=== PATIENT | male | born 2005 | race American Indian/Alaskan Native ===

== ENCOUNTER 2025-08-14 21:21 | Emergency (ER) | payer MEDICAID, OTHER | END 2025-08-14 22:36 | disposition home or self-care (01) | LOC: JP.ED 21:21 | DX: S91.302A Unspecified open wound, left foot, initial encounter (principal); S61.202A Unspecified open wound of right middle finger without damage to nail, initial encounter; L08.9 Local infection of the skin and subcutaneous tissue, unspecified; W45.8XXA Other foreign body or object entering through skin, initial encounter | CPT/HCPCS: 99283 ==